=== PATIENT | female | born 1980 | race Caucasian/White ===

== ENCOUNTER → 2017-11-27 | Outpatient (CLI) | payer OTHER ==
--- NOTE | ~2017-11-27 | 2DMMODE ---
[facility] [address] [place] [address] 2 D/M-MODE ECHOCARDIOGRAM Name: RICHAR VIZCARRA Room #: REG [facility]#: [id number] Admission: 11/27/17 Attend Phys: Annette Moura Discharge: Date of : 84 Date of Service: 11/27/17 1423 Report #: [id number] THIS REPORT FOR: //name// APPROVED REPORT Study performed: 11/27/2017 13:05:33 EXAM: Comprehensive 2D, Doppler, and color-flow Echocardiogram Patient Location: Out-Patient Status: routine BSA: 1.90 HR: 80 bpm BP: 126/78 mmHg Rhythm: Frequent PVCs Other Information Study Quality: Good Indications Palpitations, PVCs 2D Dimensions RVDd: 37.36 mm LVEF(%): 53.33 (>50%) IVSd: 8.10 (7-11mm) LVOT Diam: 20.54 (18-24mm) LVDd: 57.00 mm PWd: 8.71 (7-11mm) Ascending Ao: 31.73 (22-36mm) LVDs: 39.56 (25-40mm) Aortic Root: 29.66 mm Flanagan's LVEF: 53.33 % Volumes Left Atrial Volume (Systole) Single Plane 4CH: 56.93 mL Single Plane 2CH: 61.42 mL LA ESV Index: 35.00 mL/m2 Aortic Valve AoV Peak Vipul.: 1.67 m/s AO Peak Gr.: 11.22 mmHg LVOT Max P.45 mmHg LVOT Max V: 1.05 m/s ELAINE Vmax: 2.08 cm2 Mitral Valve E/A Ratio: 1.3 MV Decel. Time: 240.26 ms [facility] [address] [address] 2 D/M-MODE ECHOCARDIOGRAM Name: RICHAR VIZCARRA Room #: REG [facility]#: [id number] Admission: 11/27/17 Attend Phys: Annette Moura Discharge: Date of : 84 Date of Service: 11/27/17 1423 Report #: [id number] MV E Max Vipul.: 0.69 m/s MV A Vipul.: 0.53 m/s MV PHT: 69.68 ms IVRT: 64.59 ms Pulmonary Valve PV Peak Vipul.: 0.87 m/s PV Peak Gr.: 3.03 mmHg Pulmonary Vein P Vein S: 0.56 m/s P Vein D: 0.53 m/s P Vein S/D Ratio: 1.06 Tricuspid Valve TR Peak Vipul.: 2.37 m/s RAP Estimate: 5.00 mmHg TR Peak Gr.: 22.42 mmHg PA Pressure: 27.00 mmHg Left Ventricle Left ventricle is at the upper limits of normal. There is normal LV segmental wall motion. There is normal left ventricular wall thickness. Left ventricular systolic function is low normal. LVEF is 50%. The left ventricular diastolic function is normal. Right Ventricle The right ventricle is normal size. The right ventricular systolic function is normal. Atria Left atrium is at the upper limits of normal. Right atrium is at the upper limits of normal. Aortic Valve The aortic valve is normal in structure. No aortic regurgitation is present. There is no aortic valvular stenosis. Mitral Valve The mitral valve is normal in structure. Mild mitral regurgitation. Tricuspid Valve The tricuspid valve is normal in structure. Trace to mild tricuspid regurgitation. Estimated PAP is 25-30mmHg. Pulmonic Valve The pulmonary valve is normal in structure. Trace pulmonic [facility] [address] [place] [address] 2 D/M-MODE ECHOCARDIOGRAM Name: RICHAR VIZCARRA Room #: REG [facility]#: [id number] Admission: 11/27/17 Attend Phys: Annette Moura Discharge: Date of : 84 Date of Service: 11/27/17 1423 Report #: [id number] regurgitation. Great Vessels The aortic root is normal in size. The ascending aorta is normal in size. IVC is normal in size and collapses >50% with inspiration. Pericardium There is no pericardial effusion. <Conclusion> Left ventricular systolic function is low normal. Frequent ectopy There is normal LV segmental wall motion. LVEF is 50%. Normal diastolic function The aortic valve is normal in structure. No aortic regurgitation or stenosis The mitral valve is normal in structure. Mild mitral regurgitation. Trace to mild tricuspid regurgitation. Estimated pulmonary artery pressure of 25-30mmHg. There is no pericardial effusion. <ELECTRONICALLY SIGNED> By: Edgar Chiu MD, FACC 11/27/17 1423 1423 1423 Edgar Chiu MD, FACC /INF
== END ==
LOC: CV 12:46
DX: I34.0 Nonrheumatic mitral (valve) insufficiency (principal); I49.3 Ventricular premature depolarization

== ENCOUNTER → 2020-09-20 | Outpatient (CLI) | payer OTHER | LOC: LAB 07:45 | PROVIDERS: ATTEND Anesthesiology | DX: U07.1 COVID-19 (principal); Z01.812 Encounter for preprocedural laboratory examination ==